=== PATIENT | female | born 1965 | race Caucasian/White ===

== ENCOUNTER 2017-04-24 13:29 | Emergency (ER) | payer OTHER ==
--- NOTE | 2017-04-24 13:58 | PDOC ---
History of Present Illness - History of Present Illness Initial Comments: 04/24/17 14:59 The patient is a 52 year old female, with no significant past medical history, who presents to the emergency department with pain to head and buttocks s/p trip and fall whiling walking up the stairs at work today. She states she tripped and grabbed onto the railing, which caused her to fall backwards. She reports hitting the back of her head and her buttocks. She denies loss of consciousness. He denies chest pain, shortness of breath, headache and dizziness. He denies fever, chills, nausea, vomit, diarrhea and constipation. He denies dysuria, frequency, urgency and hematuria. Allergies: NKDA <Gin Gibson - Last Filed: 04/24/17 15:07> - General History Source: Patient (Patient walked in complainig of a fall and pain in the lower back , pelvis area , hit the head no LOC) <Margie Simon - Last Filed: 04/24/17 15:18> - General Chief Complaint: Injury Stated Complaint: HIT BACK OF HEAD Time Seen by Provider: 04/24/17 13:38 Past History <Gin Gibson - Last Filed: 04/24/17 15:07> <Margie Simon - Last Filed: 04/24/17 15:18> - Past Medical History Allergies/Adverse Reactions: Allergies Allergy/AdvReac Type Severity Reaction Status Date / Time No Known Allergies Allergy Verified 04/24/17 13:30 Home Medications: Ambulatory Orders NK [No Known Home Medication] 04/24/17 Review of Systems - Review of Systems Able to Perform ROS?: Yes Is the patient limited Icelandic proficient: No Constitutional: No: Chills, Diaphoresis, Fever, Malaise, Weakness HEENTM: Yes: Symptoms Reported, Other (superior and posterior head pain). No: Blurred Vision, Recent change in vision, Double Vision, Nose Pain, Tinnitus, Throat Pain, Mouth Pain Respiratory: No: Cough, Orthopnea, Shortness of Breath Cardiac (ROS): No: Chest Pain, Lightheadedness, Palpitations, Syncope ABD/GI: No: Constipated, Diarrhea, Nausea, Vomiting, Abdominal cramping : No: Burning, Dysuria, Discharge, Frequency, Flank Pain, Hematuria, Incontinence Musculoskeletal: Yes: Back Pain (low back pain/posterior pelvic pain). No: Neck Pain Integumentary: No: Bruising, Change in Color, Rash Neurological: Yes: Headache (posterior head pain). No: Paresthesia, Weakness, Unsteady Gait, Dizziness Psychiatric: No: Anxiety, Depression Hematologic/Lymphatic: No: Anemia, Easy Bruising All Other Systems: Reviewed and Negative <Gin Gibson - Last Filed: 04/24/17 15:07> *Physical Exam - Vital Signs Last Vital Signs Temp Pulse Resp BP Pulse Ox 98.2 F 95 H 20 139/84 99 04/24/17 13:30 04/24/17 13:30 04/24/17 13:30 04/24/17 13:30 04/24/17 13:30 - Physical Exam General Appearance: Yes: Nourished, Appropriately Dressed HEENT: positive: EOMI, JALEEL, Normal ENT Inspection, Other (mild ttp over superior skull) Neck: positive: Supple. negative: Tender Respiratory/Chest: positive: Lungs Clear, Normal Breath Sounds. negative: Chest Tender, Respiratory Distress, Rales, Rhonchi, Stridor, Wheezing Cardiovascular: positive: Regular Rhythm Gastrointestinal/Abdominal: positive: Normal Bowel Sounds, Soft. negative: Tender, Organomegaly, Tenderness Musculoskeletal: positive: Other (mild ttp to posterior pelvis). negative: CVA Tenderness Integumentary: positive: Normal Color. 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 Pain medication was offered and refused. Pt is a 52 yo Female, presents s/p mechanical fall with posterior pelvic pain and posterior head pain. I will Obtain a Pelvic Xray r/o fractures <Gin Gibson - Last Filed: 04/24/17 15:07> *DC/Admit/Observation/Transfer - Attestations Scribe Attestion: 04/24/17 15:06 Documentation prepared by Gin Gibson, acting as medical laboratory assistant for Margie Simon MD <Gin Gibson - Last Filed: 04/24/17 15:07> <Margie Simon - Last Filed: 04/24/17 15:18> Diagnosis at time of Disposition: Contusion of head Qualifiers: Encounter type: initial encounter Contusion of head detail: scalp Qualified Code(s): S00.03XA - Contusion of scalp, initial encounter Pelvic contusion Qualifiers: Encounter type: initial encounter Qualified Code(s): S30.0XXA - Contusion of lower back and pelvis, initial encounter - Discharge Dispostion Disposition: HOME - Patient Instructions Printed Discharge Instructions: Post-Traumatic Headache Additional Instructions: Follow up with your doctor or return to ER if any more symptoms
[2017-04-24 14:02] VITALS: BP 139/84; PULSE 95; TEMP 98.2; BMI 23.0
== END 2017-04-24 15:21 | disposition home or self-care (01) ==
LOC: FER 13:29
DX: S00.03XA Contusion of scalp, initial encounter (principal); S30.0XXA Contusion of lower back and pelvis, initial encounter; W18.39XA Other fall on same level, initial encounter; Y93.89 Activity, other specified; Y92.9 Unspecified place or not applicable
CPT/HCPCS: 72170-TC; 99281-25

== ENCOUNTER 2021-09-26 09:21 | Emergency (ER) | payer BC ==
[2021-09-26 09:25] VITALS: BMI 23.5
[2021-09-26] MEDS ORDERED: BEBTELOVIMAB (EUA) 175 MG/2 ML VIAL IVPUSH ONE (10:15)
[2021-09-26 12:53] VITALS: BP 129/79; PULSE 79; TEMP 98.9
== END 2021-09-26 13:35 | disposition home or self-care (01) ==
LOC: JER 09:21
DX: U07.1 COVID-19 (principal)
CPT/HCPCS: 99285-25; M0222; Q0222

== ENCOUNTER 2024-02-02 10:43 | Emergency (ER) | payer BC ==
[2024-02-02 10:59] VITALS: BP 139/84; PULSE 75; RESP 18; TEMP 98.5; BMI 21.9
[2024-02-02] MEDS: SODIUM CHLORIDE 0.9% 500 ML INFUS.BAG IV ONE (11:15)
[2024-02-02 11:40] LABS: HEMATOCRIT 46.9 % (32.4-45.2); HEMOGLOBIN 14.9 G/dL (10.7-15.3); MCH 28.5 pg (25.7-33.7); MCHC 31.7 g/dl (32.0-36.0); MEAN CELL VOLUME 90.1 fl (80-96); MEAN PLT VOLUME 7.6 fl (7.5-11.1); PLATELET COUNT 227.9 10^3/uL (134-434); RBC 5.21 10^6/uL (3.60-5.2); RDW 13.6 % (11.6-15.6); WHITE BLOOD COUNT 6.8 10^3/uL (4.0-10.8)
[2024-02-02 11:49] LABS: ALBUMIN 4.6 g/dl (3.4-5.0); ALK PHOS 56 U/L (45-117); ANION GAP 11 mmol/L (4-13); CALCIUM 10.1 mg/dl (8.5-10.1); CHLORIDE 101 mmol/L (98-107); CO2 27 mmol/L (21-32); CREATININE 0.8 mg/dl (0.6-1.3); GLUCOSE,RANDOM 101 mg/dl (74-106); POTASSIUM 3.9 mmol/L (3.5-5.1); SGOT/AST 15 U/L (15-37); SGPT/ALT 15 U/L (7-52); SODIUM 139 mmol/L (136-145); TOT PROT 7.1 g/dl (6.4-8.2)
[2024-02-02] MEDS ORDERED: PROCHLORPERAZINE INJECTION 10 MG/2 ML VIAL ONE (11:53)
[2024-02-02] MEDS: PROCHLORPERAZINE INJECTION 10 MG/2 ML VIAL IVPB ONE (12:19)
[2024-02-02 12:36] LABS: PLATELET ESTIMATE ADEQUATE
[2024-02-02] MEDS ORDERED: ACETAMINOPHEN INJECTION 100 ML ONE (12:56)
[2024-02-02] MEDS ORDERED: MAGNESIUM 1GM/D5W - 1 GM/100 ML IVPB IVPB ONE (12:57)
[2024-02-02] MEDS: ACETAMINOPHEN 1000 MG/100 ML BAG IVPB ONE (13:01)
[2024-02-02] MEDS: MAGNESIUM SULF 50% (8.12 MEQ/2 ML-1 GM VIAL) IVPB ONE (13:20)
== END 2024-02-02 14:45 | disposition home or self-care (01) ==
LOC: FER 10:43
PROC: 3E033NZ Introduction of Analgesics, Hypnotics, Sedatives into Peripheral Vein, Percutaneous Approach (ICD-10-PCS; principal; 2024-02-02)
PROC: 3E033GC Introduction of Other Therapeutic Substance into Peripheral Vein, Percutaneous Approach (ICD-10-PCS; 2024-02-02)
PROC: 3E033GC Introduction of Other Therapeutic Substance into Peripheral Vein, Percutaneous Approach (ICD-10-PCS; 2024-02-02)
PROC: 3E033GC Introduction of Other Therapeutic Substance into Peripheral Vein, Percutaneous Approach (ICD-10-PCS; 2024-02-02)
DX: G43.909 Migraine, unspecified, not intractable, without status migrainosus (principal); R11.2 Nausea with vomiting, unspecified; M54.2 Cervicalgia; R53.1 Weakness; R42 Dizziness and giddiness; R63.0 Anorexia; R53.83 Other fatigue; Z20.822 Contact with and (suspected) exposure to COVID-19
CPT/HCPCS: 0241U-QW; 36415; 70450-TC; 80053; 83690; 84484; 85027; 86618; 93005; 99285-25; J0131